=== PATIENT | female | born 1945 | race Caucasian/White ===

== ENCOUNTER 2017-01-13 07:51 | Day surgery (SDC) | payer MEDICARE, OTHER ==
[~2017-01-13 07:51] MED LIST: Sodium Chloride 0.9% 10 ML Syringe FLUSH PRN
[2017-01-13 09:58] VITALS: BP 171/72
--- NOTE | 2017-01-14 08:47 | OR ---
DATE OF PROCEDURE: 01/13/2017 POSTOPERATIVE CARE: Postoperative care will be provided mainly at the [address] [place] [address] [facility] in conjunction with [facility]. PREOPERATIVE DIAGNOSIS: Cataract, right eye. PREOPERATIVE DIAGNOSIS: Cataract, right eye. PROCEDURE: Cataract extraction, phacoemulsification with intraocular lens placement, right eye. ANESTHESIA: Topical and intracameral. ESTIMATED BLOOD LOSS: Minimal. COMPLICATIONS: None. PATHOLOGY SPECIMENS: None. SURGICAL FINDINGS: None. INDICATION FOR PROCEDURE: The patient is a 71-year-old female with history of a visually significant cataract in the right eye, which interfered with activities of daily living. This consisted of a nuclear sclerosis cataract. Following careful discussion of the risks, benefits and alternatives to cataract extraction with intraocular lens placement including blindness and , the patient elected to proceed, and informed, written consent was obtained prior to the procedure. DESCRIPTION OF THE PROCEDURE: The patient was previously identified, and a renée placed above the right eye. All sources, including the patient, indicated that the right eye was the correct eye. The patient was subsequently taken to the operating room where standard monitors were applied. The patient was then prepped and draped in the usual sterile fashion for ophthalmic surgery. Attention was first directed at the 12 o'clock position where a paracentesis port was fashioned. Shugar solution followed by Viscoat was instilled into the eye. Attention was then directed to the 8:30 position where a triplanar incision was made in a near-clear manner using a keratome. A continuous capsulorrhexis was then made using a combination of the cystotome and Utrata forceps. Hydrodissection was achieved using a balanced salt solution, and the lens rotated nicely. Phacoemulsification was then done using a modified rekzaa-lcj-zmvapeo technique without complication. Phaco time was 11.65 CDE. The remaining cortex was removed using the irrigation/aspiration handpiece. Provisc was then instilled into the eye. A Technis lens, model [id number], at 21.0 diopters was then placed in the capsular bag using an Ackley injector. The remaining viscoelastic was removed using the irrigation/aspiration forceps. All wounds were then checked and found to be watertight. The lid speculum and drapes were removed. Maxitrol ointment was placed in the patient's right eye, and the eye was shielded. The patient tolerated the procedure well. The patient was instructed to follow up tomorrow. All needle and sponge counts were correct at the end of the procedure. Mackenzie Fairbanks MD /[id number]
== END 2017-01-13 10:00 | disposition home or self-care (01) ==
LOC: JP.SDS 07:51
PROVIDERS: ATTEND Ophthalmology
DX: H25.11 Age-related nuclear cataract, right eye (principal); E78.00 Pure hypercholesterolemia, unspecified; Z98.890 Other specified postprocedural states; Z88.8 Allergy status to other drugs, medicaments and biological substances; Z98.51 Tubal ligation status
CPT/HCPCS: 66984; C1780; J7050

== ENCOUNTER 2017-01-27 06:21 | Day surgery (SDC) | payer MEDICARE, OTHER ==
[2017-01-27] MEDS ORDERED: Sodium Chloride 0.9% 10 ML Syringe FLUSH PRN (07:00)
--- NOTE | 2017-01-27 11:24 | OR ---
DATE OF PROCEDURE: 01/27/2017 POSTOPERATIVE CARE: Postoperative care will be provided mainly at the [address] [place] [address] [facility] in conjunction with [facility]. PREOPERATIVE DIAGNOSIS: Cataract, left eye. PREOPERATIVE DIAGNOSIS: Cataract, left eye. PROCEDURE: Cataract extraction, phacoemulsification with intraocular lens placement, left eye. ANESTHESIA: Topical and intracameral. ESTIMATED BLOOD LOSS: Minimal. COMPLICATIONS: None. PATHOLOGY SPECIMENS: None. SURGICAL FINDINGS: None. INDICATION FOR PROCEDURE: The patient is a 71-year-old female with history of a visually significant cataract in the left eye, which interfered with activities of daily living. This consisted of a nuclear sclerosis cataract. Following careful discussion of the risks, benefits and alternatives to cataract extraction with intraocular lens placement including blindness and , the patient elected to proceed, and informed, written consent was obtained prior to the procedure. DESCRIPTION OF THE PROCEDURE: The patient was previously identified, and a renée placed above the left eye. All sources, including the patient, indicated that the left eye was the correct eye. The patient was subsequently taken to the operating room where standard monitors were applied. The patient was then prepped and draped in the usual sterile fashion for ophthalmic surgery. Attention was first directed at the 12 o'clock position where a paracentesis port was fashioned. Shugar solution followed by Viscoat was instilled into the eye. Attention was then directed to the 8:30 position where a triplanar incision was made in a near-clear manner using a keratome. A continuous capsulorrhexis was then made using a combination of the cystotome and Utrata forceps. Hydrodissection was achieved using a balanced salt solution, and the lens rotated nicely. Phacoemulsification was then done using a modified ilwzkh-btr-bvfvnrs technique without complication. Phaco time was 11.01 CDE. The remaining cortex was removed using the irrigation/aspiration handpiece. Provisc was then instilled into the eye. A Technis lens, model [id number], at 21.0 diopters was then placed in the capsular bag using an Whiting injector. The remaining viscoelastic was removed using the irrigation/aspiration forceps. All wounds were then checked and found to be watertight. The lid speculum and drapes were removed. Maxitrol ointment was placed in the patient's left eye, and the eye was shielded. The patient tolerated the procedure well. The patient was instructed to follow up tomorrow. All needle and sponge counts were correct at the end of the procedure. Mackenzie Fairbanks MD /[id number]
== END 2017-01-27 07:55 | disposition home or self-care (01) ==
LOC: JP.SDS 06:21
PROVIDERS: ATTEND Ophthalmology
DX: H25.12 Age-related nuclear cataract, left eye (principal)
CPT/HCPCS: 66984; C1780; J7050

== ENCOUNTER 2020-03-31 13:50 | Emergency (ER) | payer MEDICARE ==
[2020-03-31] MEDS ORDERED: Acetaminophen 325 MG Tab PO PRN (14:38)
[2020-03-31] MEDS ORDERED: Albuterol/Ipratropium 4 GM Inhalation Spray INH PRN (14:39)
[2020-03-31] MEDS ORDERED: traMADol 50 MG Tab PO ONE (14:39)
--- NOTE | 2020-03-31 14:41 | EDM.PDOC ---
ED HPI GENERAL MEDICAL PROBLEM - General Chief Complaint: Respiratory Problem Stated Complaint: MEDICAL VIA [facility] Time Seen by Provider: 03/31/20 14:30 Source of Information: Reports: Patient, RN Notes Reviewed History Limitations: Reports: No Limitations - History of Present Illness INITIAL COMMENTS - FREE TEXT/NARRATIVE: 74-year-old female presents the emergency department a complaint of shortness of breath and body aches, she is 12 days into her COVID-19 diagnosis states she has ongoing back pain and worsening shortness of breath. No fevers no nausea vomiting no chest pain Lower Back Pain Score (Numeric/FACES): 10 - Related Data Allergies Allergy/AdvReac Type Severity Reaction Status Date / Time Aidurlj-Ubl-Uer Reductase AdvReac Muscle Verified 03/31/20 14:00 Inhibitor Aches Home Meds: Home Meds Paul/D3/Mag11/Zinc/Emergency Operator/Petey/Bor [Caltrate Plus Tablet] 1 each PO BID 01/10/17 [History] Lutein 20 mg PO DAILY 01/10/17 [History] traMADol HCl [Tramadol HCl] 50 mg PO QID PRN 01/10/17 [History] Albuterol Sulfate [Proair Respiclick] 90 mcg IH Q4HR 03/31/20 [History] Alendronate Sodium 70 mg PO ASDIRECTED 03/31/20 [History] Doxycycline Monohydrate 100 mg PO BID 03/31/20 [History] Fluticasone Propion/Salmeterol [Wixela 250-50 Inhub] 1 puff IH BID 03/31/20 [H istory] Metoprolol Succinate 25 mg PO DAILY 03/31/20 [History] Pravastatin Sodium 10 mg PO DAILY 03/31/20 [History] Past Medical History HEENT History: Reports: Cataract, Impaired Vision, Macular Degeneration Cardiovascular History: Reports: High Cholesterol TARIFF COUNSEL History: Reports: Musculoskeletal History: Reports: Arthritis, Back Pain, Chronic, Osteoarthritis, Osteoporosis Hematologic History: Reports: None Immunologic History: Reports: None Oncologic (Cancer) History: Reports: None Dermatologic History: Reports: None - Infectious Disease History Infectious Disease History: Reports: Chicken Pox, Herpes, Measles, Mumps - Past Surgical History Head Surgeries/Procedures: Reports: None HEENT Surgical History: Reports: None Cardiovascular Surgical History: Reports: None Respiratory Surgical History: Reports: None GI Surgical History: Reports: Hernia, Inguinal Female Surgical History: Reports: Tubal Ligation Endocrine Surgical History: Reports: None Neurological Surgical History: Reports: None Musculoskeletal Surgical History: Reports: None Oncologic Surgical History: Reports: None Dermatological Surgical History: Reports: Other (See Below) Social & Family History - Family History Family Medical History: No Pertinent Family History - Tobacco Use Tobacco Use Status *Q: Former Tobacco User Used Tobacco, but Quit: Yes Month/Year Tobacco Last Used: 2018 - Caffeine Use Caffeine Use: Reports: Coffee, Tea - Recreational Drug Use Recreational Drug Use: No ED ROS GENERAL - Review of Systems Review Of Systems: See Below Constitutional: Reports: Weakness, Fatigue. Denies: Fever HEENT: Reports: No Symptoms Respiratory: Reports: Shortness of Breath. Denies: Cough, Sputum Cardiovascular: Reports: Dyspnea on Exertion GI/Abdominal: Reports: No Symptoms : Reports: No Symptoms Musculoskeletal: Reports: Muscle Pain ED EXAM, GENERAL - Physical Exam Exam: See Below Exam Limited By: No Limitations General Appearance: Alert, WD/WN, No Apparent Distress Respiratory/Chest: No Respiratory Distress, Lungs Clear, Normal Breath Sounds, No Accessory Muscle Use, Chest Non-Tender Cardiovascular: Regular Rate, Rhythm, No Murmur GI/Abdominal: Soft, Non-Tender Back Exam: Normal Inspection, Full Range of Motion. No: CVA Tenderness (R), CVA Tenderness (L), Muscle Spasm, Paraspinal Tenderness, Vertebral Tenderness Extremities: No Pedal Edema Course - Vital Signs Last Recorded V/S: Last Vital Signs Temp 99.7 F 03/31/20 13:52 Pulse 100 03/31/20 15:00 Resp 20 03/31/20 15:00 BP 195/91 H 03/31/20 15:00 Pulse Ox 99 03/31/20 15:00 - Orders/Labs/Meds Orders: Active Orders 24 hr Category Date Time Status RT Post Treatment Assessment [RC] Click to Edit Care 03/31/20 14:39 Active Acetaminophen [TylenoL] Med 03/31/20 14:38 Active 650 mg PO Q4H PRN Albuterol/Ipratropium [Combivent Respimat] Med 03/31/20 14:39 Active 2 gm INH Q4H PRN Isolation [COMM] Stat Oth 03/31/20 14:38 Ordered Medication Orders Acetaminophen (Tylenol) 650 mg PO Q4H PRN PRN Reason: Fever Greater Than 101 Last Admin: 03/31/20 15:05 Dose: 650 mg Documented by: PREILOR Albuterol/Ipratropium (Combivent Respimat) 2 gm INH Q4H PRN PRN Reason: Dyspnea Last Admin: 03/31/20 15:04 Dose: 1 puff Documented by: PREILOR Labs: Laboratory Tests 03/31/20 03/31/20 03/31/20 Range/Units 15:02 15:02 15:02 WBC 14.3 H (4.5-11.0) K/uL RBC 5.05 (3.30-5.50) M/uL Hgb 14.5 (12.0-15.0) g/dL Hct 44.2 (36.0-48.0) % MCV 88 (80-98) fL MCH 29 (27-31) pg MCHC 33 (32-36) % Plt Count 345 (150-400) K/uL Neut % (Auto) 84 H (36-66) % Lymph % (Auto) 4 L (24-44) % Ramsey % (Auto) 12 H (2-6) % Eos % (Auto) 0 L (2-4) % Baso % (Auto) 0 (0-1) % PT 11.2 (9.5-12.0) sec INR 1.03 (0.80-1.20) D-Dimer, Quantitative 1397.82 H (0.0-500.0) ng/mL Sodium (140-148) mmol/L Potassium (3.6-5.2) mmol/L Chloride (100-108) mmol/L Carbon Dioxide (21-32) mmol/L Anion Gap (5.0-14.0) mmol/L BUN (7-18) mg/dL Creatinine (0.6-1.0) mg/dL Est Cr Clr Drug Dosing mL/min Estimated GFR (MDRD) (>60) Glucose (74-106) mg/dL Lactic Acid (0.4-2.0) mmol/L Calcium (8.5-10.1) mg/dL Total Bilirubin (0.2-1.0) mg/dL Direct Bilirubin (0.0-0.2) mg/dL Indirect Bilirubin AST (15-37) U/L ALT (12-78) U/L Alkaline Phosphatase (46-116) U/L Lactate Dehydrogenase (82-234) U/L Troponin I (0.000-0.056) ng/mL C-Reactive Protein (0.0-0.3) mg/dL Total Protein (6.4-8.2) g/dL Albumin (3.4-5.0) g/dL Globulin (2.3-3.5) g/dL Albumin/Globulin Ratio (1.2-2.2) Procalcitonin ng/mL 03/31/20 03/31/20 03/31/20 Range/Units 15:02 15:02 15:02 WBC (4.5-11.0) K/uL RBC (3.30-5.50) M/uL Hgb (12.0-15.0) g/dL Hct (36.0-48.0) % MCV (80-98) fL MCH (27-31) pg MCHC (32-36) % Plt Count (150-400) K/uL Neut % (Auto) (36-66) % Lymph % (Auto) (24-44) % Ramsey % (Auto) (2-6) % Eos % (Auto) (2-4) % Baso % (Auto) (0-1) % PT (9.5-12.0) sec INR (0.80-1.20) D-Dimer, Quantitative (0.0-500.0) ng/mL Sodium 136 L (140-148) mmol/L Potassium 3.4 L (3.6-5.2) mmol/L Chloride 98 L (100-108) mmol/L Carbon Dioxide 27 (21-32) mmol/L Anion Gap 14.4 H (5.0-14.0) mmol/L BUN 13 (7-18) mg/dL Creatinine 1.0 (0.6-1.0) mg/dL Est Cr Clr Drug Dosing 34.38 mL/min Estimated GFR (MDRD) 54 L (>60) Glucose 138 H (74-106) mg/dL Lactic Acid 1.7 (0.4-2.0) mmol/L Calcium 9.1 (8.5-10.1) mg/dL Total Bilirubin 0.7 (0.2-1.0) mg/dL Direct Bilirubin 0.11 (0.0-0.2) mg/dL Indirect Bilirubin 0.59 AST 17 (15-37) U/L ALT 24 (12-78) U/L Alkaline Phosphatase 117 H (46-116) U/L Lactate Dehydrogenase 162 (82-234) U/L Troponin I (0.000-0.056) ng/mL C-Reactive Protein 9.42 H (0.0-0.3) mg/dL Total Protein 7.6 (6.4-8.2) g/dL Albumin 3.2 L (3.4-5.0) g/dL Globulin 4.4 H (2.3-3.5) g/dL Albumin/Globulin Ratio 0.7 L (1.2-2.2) Procalcitonin < 0.05 ng/mL 03/31/20 Range/Units 15:02 WBC (4.5-11.0) K/uL RBC (3.30-5.50) M/uL Hgb (12.0-15.0) g/dL Hct (36.0-48.0) % MCV (80-98) fL MCH (27-31) pg MCHC (32-36) % Plt Count (150-400) K/uL Neut % (Auto) (36-66) % Lymph % (Auto) (24-44) % Ramsey % (Auto) (2-6) % Eos % (Auto) (2-4) % Baso % (Auto) (0-1) % PT (9.5-12.0) sec INR (0.80-1.20) D-Dimer, Quantitative (0.0-500.0) ng/mL Sodium (140-148) mmol/L Potassium (3.6-5.2) mmol/L Chloride (100-108) mmol/L Carbon Dioxide (21-32) mmol/L Anion Gap (5.0-14.0) mmol/L BUN (7-18) mg/dL Creatinine (0.6-1.0) mg/dL Est Cr Clr Drug Dosing mL/min Estimated GFR (MDRD) (>60) Glucose (74-106) mg/dL Lactic Acid (0.4-2.0) mmol/L Calcium (8.5-10.1) mg/dL Total Bilirubin (0.2-1.0) mg/dL Direct Bilirubin (0.0-0.2) mg/dL Indirect Bilirubin AST (15-37) U/L ALT (12-78) U/L Alkaline Phosphatase (46-116) U/L Lactate Dehydrogenase (82-234) U/L Troponin I < 0.017 (0.000-0.056) ng/mL C-Reactive Protein (0.0-0.3) mg/dL Total Protein (6.4-8.2) g/dL Albumin (3.4-5.0) g/dL Globulin (2.3-3.5) g/dL Albumin/Globulin Ratio (1.2-2.2) Procalcitonin ng/mL Meds: Medications Generic Name Dose Route Start Last Admin Trade Name Freq PRN Reason Stop Dose Admin Acetaminophen 650 mg 03/31/20 14:38 03/31/20 15:05 Tylenol PO 650 mg Q4H PRN Administration Fever Greater Than 101 Albuterol/Ipratropium 2 gm 03/31/20 14:39 03/31/20 15:04 Combivent Respimat INH 1 puff Q4H PRN Administration Dyspnea Discontinued Medications Generic Name Dose Route Start Last Admin Trade Name Freq PRN Reason Stop Dose Admin Tramadol HCl 100 mg 03/31/20 14:39 03/31/20 15:08 Ultram PO 03/31/20 14:40 100 mg ONETIME ONE Administration Departure - Departure Time of Disposition: 16:19 Disposition: Home, Self-Care 01 Condition: Fair Clinical Impression: COVID-19 - Discharge Information Instructions: COVID-19 Frequently Asked Questions, COVID-19 Referrals: PCP,None [Primary Care Provider] - Forms: ED Department Discharge Additional Instructions: Continue using Tylenol or Motrin for body aches, continue using her tramadol for back pain use the Combivent as needed for symptomatic relief of your shortness of breath, please followup with your primary care provider in 3-5 days if not better, please call return to the emergency department with worsening of symptoms. Sepsis Event Note (ED) - Evaluation Sepsis Screening Result: Possible Sepsis Risk - Focused Exam Vital Signs: Vital Signs Temp Pulse Resp BP Pulse Ox 03/31/20 15:00 100 20 195/91 H 99 03/31/20 13:52 99.7 F 91 18 173/73 H 99 - My Orders Last 24 Hours: My Active Orders 03/31/20 14:38 Acetaminophen [TylenoL] 650 mg PO Q4H PRN Isolation [COMM] Stat 03/31/20 14:39 RT Post Treatment Assessment [RC] Click to Edit Albuterol/Ipratropium [Combivent Respimat] 2 gm INH Q4H PRN - Assessment/Plan Last 24 Hours: My Active Orders 03/31/20 14:38 Acetaminophen [TylenoL] 650 mg PO Q4H PRN Isolation [COMM] Stat 03/31/20 14:39 RT Post Treatment Assessment [RC] Click to Edit Albuterol/Ipratropium [Combivent Respimat] 2 gm INH Q4H PRN Plan: Assessment Acuity = acute Site and laterality = viral syndrome Etiology = COVID-19 Manifestations = dyspnea, body aches Location of injury = Home Lab values = WBC elevated 14.3 consistent leukocytosis, remainder is unremarkable D-dimer elevated 1397 consistent with inflammatory marker sodium low at 136 consistent hyponatremia potassium low at 3.4 consistent with hypokalemia lactic acid normal 1.7 CRP slightly elevated 9.42 procalcitonin was negative, chest x-ray shows no acute process gram Covid risk score puts her at about 13% or in moderate risk range Plan She had good improvement with Combivent inhaler as well as tramadol and Tylenol for pain, plan is discharged home continue with symptomatic care follow-up primary care 5 to 7 days if no improvement This note was dictated using [employer] voice recognition software please call with any questions on syntax or grammar.
--- NOTE | 2020-03-31 15:26 | CRLCR ---
INDICATION: 1 images HISTORY: Respiratory failure. COMPARISON: None. TECHNIQUE: Chest one-view portable upright. FINDINGS: There is diffuse pulmonary hyperinflation. The heart size and pulmonary vasculature are within normal limits. There is no acute airspace disease. There is no pneumothorax. Minimal linear type opacities in the right lung likely reflects scar. Central airway is normal. IMPRESSION: No acute airspace disease. Dictated by Eliot Fish MD @ 03/31/2020 3:24:48 PM Dictated by: Eliot Fish MD @ 03/31/2020 15:24:58 (Electronically Signed)
[2020-03-31 16:48] VITALS: BP 161/73; PULSE 83
== END 2020-03-31 17:15 | disposition home or self-care (01) ==
LOC: JP.ED 13:50
DX: U07.1 COVID-19 (principal); E78.00 Pure hypercholesterolemia, unspecified; Z88.8 Allergy status to other drugs, medicaments and biological substances; Z79.899 Other long term (current) drug therapy; Z87.891 Personal history of nicotine dependence
CPT/HCPCS: 36415; 71045; 80048; 80076; 83605; 83615; 84145; 84484; 85025; 85379; 85610; 86140; 94640; 99284; 99285; A9270

== ENCOUNTER 2023-04-19 19:05 | Emergency (ER) | payer MEDICARE ==
[2023-04-19] MEDS ORDERED: Tranexamic Acid 1,000 MG/10 ML Vial TOP ONE (19:08)
[2023-04-19 19:32] VITALS: BP 175/95; PULSE 93
== END 2023-04-19 20:43 | disposition home or self-care (01) ==
LOC: JP.ED 19:05
DX: R04.0 Epistaxis (principal); E78.00 Pure hypercholesterolemia, unspecified; M19.90 Unspecified osteoarthritis, unspecified site; Z79.82 Long term (current) use of aspirin; Z79.899 Other long term (current) drug therapy; Z88.8 Allergy status to other drugs, medicaments and biological substances
CPT/HCPCS: 30903; 99283

== ENCOUNTER 2025-02-11 09:34 | Emergency (ER) | payer MEDICARE ==
[2025-02-11 11:30] VITALS: BP 136/110; PULSE 88
== END 2025-02-11 11:31 | disposition home or self-care (01) ==
LOC: JP.ED 09:34
DX: R04.0 Epistaxis (principal); E78.00 Pure hypercholesterolemia, unspecified; Z79.82 Long term (current) use of aspirin; Z79.02 Long term (current) use of antithrombotics/antiplatelets; Z79.899 Other long term (current) drug therapy; Z88.8 Allergy status to other drugs, medicaments and biological substances
CPT/HCPCS: 30901; 99283; 99283-25